=== PATIENT | male | born 1980 | race Hispanic/Latino ===

== ENCOUNTER 2020-09-24 12:57 | Emergency (ER) | payer SELFPAY ==
[~2020-09-24] VITALS: Ht 170.2 cm; Wt 74.3 kg
[2020-09-24 12:59] VITALS: BP 125/83
[2020-09-24] MEDS ORDERED: LIDOCAINE W/EPINEPHRINE 1% 20ML VIAL SC ONE (14:35)
[2020-09-24] MEDS ORDERED: INFANRIX VACCINE SYRINGE (DIPHTH/TET/ACEL PERTUS PEDIATRIC) (CPT 90700) IM ONE (14:40)
[2020-09-24] MEDS ORDERED: BOOSTRIX/ADACEL VACCINE (DIPHTH/PERTUSS/ACELL/TETANUS) 0.5ML SYR IM ONE (14:45)
[2020-09-24] MEDS ORDERED: IBUP-1022 PO (15:35)
== END 2020-09-24 16:26 | disposition home or self-care (01) ==
LOC: M ED 12:57
DX: L72.3 Sebaceous cyst (principal)